=== PATIENT | female | born 1965 | race Caucasian/White ===

== ENCOUNTER → 2016-06-30 | Outpatient (CLI) | payer OTHER ==
--- NOTE | 2016-07-02 10:36 | MM ---
Reason for exam: screening (asymptomatic). Last mammogram was performed 2 years and 7 months ago. History: Patient has history of high-risk lesion on a previous biopsy at age 43. Family history of breast cancer in maternal aunt at age 70. High risk left breast needle localization of the left breast, December 24, 2008. Benign left mammotome panel of the left breast, December 03, 2008. Benign left mammotome panel of the left breast, December 03, 2008. Benign right US cyst aspiration of the right breast, December 03, 2008. Physical Findings: A clinical breast exam by your physician is recommended on an annual basis and results should be correlated with mammographic findings. MG Screening Mammo w CAD Bilateral CC and MLO view(s) were taken. Prior study comparison: December 05, 2013, bilateral MG diagnostic mammo w CAD [facility]. The breast tissue is heterogeneously dense. This may lower the sensitivity of mammography. Previous mammotome biopsy within the left breast. Bilateral regional calcifications redemonstrated. No significant changes when compared with prior studies. ASSESSMENT: Negative, BI-RAD 1 RECOMMENDATION: Routine screening mammogram of both breasts in 1 year.
== END | disposition home or self-care (01) ==
LOC: RADMAMWWP 12:51
PROVIDERS: ATTEND Obstetrics & Gynecology
DX: Z12.31 Encounter for screening mammogram for malignant neoplasm of breast (principal); N95.1 Menopausal and female climacteric states

== ENCOUNTER → 2017-12-06 | Outpatient (CLI) | payer OTHER ==
--- NOTE | 2017-12-07 10:22 | MM ---
Reason for exam: screening (asymptomatic). Last mammogram was performed 1 year and 5 months ago. History: Patient has history of high-risk lesion on a previous biopsy at age 43. Family history of breast cancer in maternal aunt at age 70. High risk left breast needle localization of the left breast, December 24, 2008. Benign left mammotome panel of the left breast, December 03, 2008. Benign left mammotome panel of the left breast, December 03, 2008. Benign right US cyst aspiration of the right breast, December 03, 2008. Physical Findings: A clinical breast exam by your physician is recommended on an annual basis and results should be correlated with mammographic findings. MG Screening Mammo w CAD Bilateral CC and MLO view(s) were taken. Prior study comparison: June 30, 2016, bilateral MG screening mammo w CAD. December 05, 2013, bilateral MG diagnostic mammo w CAD [facility]. The breast tissue is extremely dense which could obscure a lesion on mammography. Finding #1: Architectural distortion in the upper outer quadrant of the left breast. Finding #2: There are grouped/clustered calcifications in the upper outer quadrant of the left breast and lower inner quadrant of the right breast. Previous mammotome biopsy in the left breast. ASSESSMENT: Incomplete: need additional imaging evaluation, BI-RAD 0 RECOMMENDATION: Special view mammogram of both breasts. [facility] will attempt to contact patient to return for supplemental views.
== END | disposition home or self-care (01) ==
LOC: RADMAMWWP 07:09
PROVIDERS: ATTEND Obstetrics & Gynecology
DX: Z12.31 Encounter for screening mammogram for malignant neoplasm of breast (principal)
CPT/HCPCS: 77067

== ENCOUNTER → 2017-12-08 | Outpatient (CLI) | payer OTHER ==
--- NOTE | 2017-12-09 10:18 | MM ---
Reason for exam: additional evaluation requested from abnormal screening. Last mammogram was performed less than 1 month ago. History: Patient is postmenopausal and has history of high-risk lesion on a previous biopsy at age 43. Family history of breast cancer in maternal aunt at age 70. High risk left breast needle localization of the left breast, December 24, 2008. Benign left mammotome panel of the left breast, December 03, 2008. Benign left mammotome panel of the left breast, December 03, 2008. Benign right US cyst aspiration of the right breast, December 03, 2008. Physical Findings: Nurse did not find any significant physical abnormalities on exam. MG Work Up Mamm w CAD BILAT Bilateral LM, CC with magnification, and LM with magnification view(s) were taken. Prior study comparison: December 06, 2017, bilateral MG screening mammo w CAD. June 30, 2016, bilateral MG screening mammo w CAD. The breast tissue is extremely dense which could obscure a lesion on mammography. Although there are scattered diffuse calcifications bilaterally there are increasing regional left upper outer quadrant middle depth calcifications and right lower inner quadrant calcifications that are similar in morphology one videotape sales representative biopsy on the left will be performed. Recommendation for the remaining calcifications will be based on biopsy results. These results were verbally communicated with the patient and result sheet given to the patient on 12/08/17. ASSESSMENT: Suspicious, BI-RAD 4 RECOMMENDATION: Stereotactic core biopsy of the left breast. Called Dr. Resendiz with mammographic findings and has scheduled an appointment for the patient for 12/22/17 at 11:[address] Madrigal. PRELIMINARY REPORT CALLED AND FAXED TO DR. MADRIGAL ON 12/09/17.
== END | disposition home or self-care (01) ==
LOC: RADMAMWWP 13:41
PROVIDERS: ATTEND Obstetrics & Gynecology
DX: R92.8 Other abnormal and inconclusive findings on diagnostic imaging of breast (principal)
CPT/HCPCS: 77066